=== PATIENT | female | born 1950 | race Hispanic/Latino ===

== ENCOUNTER 2019-04-03 09:07 | Emergency (ER) | payer MEDICARE ==
--- OUTSIDE RECORDS SUMMARY | 2019-04-03 09:09 | XMS REPORT | Clinical Summary ---
:1950 Author Organization [facility] Address [address] [place] [id number] Care Team Providers Name Role Phone Corona Barry MD Primary Care Provider Allergies No Known Allergies Medications Medication Sig Dispensed Refills Start Date End Date Status ezetimibe (ZETIA) 10 mg TK 1 T PO QD 5 08/09/2018 Active tablet levothyroxine TK 1 T PO QD 1 07/10/2018 Active (SYNTHROID, LEVOXYL) 50 mcg tablet fluticasone (FLONASE) 50 SHAKE LQ AND U 1 5 06/13/2018 Active mcg/actuation nasal SPR IEN QD spray Active Problems Problem Noted Date Family history of premature CAD 08/31/2018 Hyperlipidemia 08/31/2018 Encounters Date Type Specialty Care Team Description 09/16/2018 Office Visit Cardiology Adrogue, Hyperlipidemia, unspecified hyperlipidemia type (Primary Dx); MD Francy Family history of premature CAD 08/31/2018 Office Visit Cardiology Adrogue, Hx of congestive heart disease (Primary Dx); MD Francy Dizziness; Family history of premature CAD; Hyperlipidemia, unspecified hyperlipidemia type 08/08/2018 Transcribe Orders Procedural Adrogue, Family history of heart Cardiology MD Francy disease (Primary Dx) after 04/02/2018 Family History Medical History Relation Name Comments Heart attack Brother Heart attack Brother Stroke Brother Heart attack Father Heart attack Mother Heart attack Other Nephew Stroke Sister Stroke Sister Relation Name Status Comments Brother Alive Brother Alive Brother Alive Father Alive Mother Other Nephew age 40, of [place] Sister Alive Sister Alive Social History Tobacco Use Types Packs/Day Years Used Date Never Smoker Smokeless Tobacco: Never Used Alcohol Use Drinks/Week oz/Week Comments No Alcohol Habits Answer Date Recorded How often do you have a drink containing alcohol? Never 08/31/2018 How many drinks containing alcohol do you have on a typical Not asked day when you are drinking? How often do you have six or more drinks on one occasion? Not asked Sex Assigned at Date Recorded Not on file Job Start Date Occupation Industry Not on file Not on file Not on file Travel History Travel Start Travel End No recent travel history available. 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 ECHOCARDIOGRAM 2D Routine 08/31/2018 12:23 Family history of Results for this COMPLETE W MMODE PM CHIP MIXING MACHINE OPERATOR heart disease procedure are in SPECTRAL COLOR DOPPLER the results (15793) section. CV TREADMILL STRESS Routine 08/31/2018 10:53 Family history of TEST AM CHIP MIXING MACHINE OPERATOR heart disease ECG 12-LEAD Routine 08/31/2018 10:08 Hx of congestive Results for this AM CHIP MIXING MACHINE OPERATOR heart disease procedure are in the results section. after 04/02/2018 Results Us carotid duplex (09/16/2018 11:14 AM CHIP MIXING MACHINE OPERATOR) BSA Espinoza 0.00 m2 HM [facility] L CCA Prox 18.13 cm/s cm/s HM [facility] L CCA Prox 69.48 cm/s cm/s HM [facility] Lt CCA Prox RI 73.91 HM [facility] L ICA Prox 16.04 cm/s cm/s HM [facility] L ICA Prox 62.46 cm/s cm/s HM [facility] R ICA Prox 15.78 cm/s cm/s HM [facility] R ICA Prox 56.53 cm/s cm/s HM [facility] L ICA/CCA Ratio 1.19 cm/s HM [facility] R ICA/CCA Ratio 1.13 cm/s HM [facility] Lt CCA Prox SD 383.33 HM [facility] L CCA Max 69.48 cm/s cm/s HM [facility] R CCA Max 77.85 cm/s cm/s HM [facility] Lt ICA Prox RI 74.31 cm/s HM [facility] Lt ICA Prox SD 389.29 HM [facility] L ICA Max 82.83 cm/s cm/s HM [facility] Rt ICA Prox RI 72.09 cm/s [facility] Rt ICA Prox SD 358.33 cm/s HM [facility] R ICA Max 88.13 cm/s cm/s HM [facility] R CCA Prox 16.34 cm/s cm/s HM [facility] R CCA Prox 77.85 cm/s cm/s HM [facility] Rt CCA Prox RI 79.01 HM [facility] Rt CCA Prox SD 476.47 HM [facility] Lt CCA Dist SD Ratio 380.65 HM [facility] Lt ICA Dist SD Ratio 277.27 HM [facility] Rt CCA Dist SD Ratio 412.00 HM [facility] RT ICA Dist SD Ratio 343.24 cm/s HM [facility] Rt ICA Mid SD 329.73 cm/s HM [facility] R CCA Dist 14.32 cm/s cm/s HM [facility] R CCA Dist 59.02 cm/s cm/s HM [facility] RT CCA DIST RI 75.73 cm/s HM [facility] RT CCA PROX SD RATIO 476.47 cm/s HM [facility] L ICA Dist 29.87 cm/s cm/s HM [facility] L ICA DIST 82.83 cm/s cm/s HM [facility] LT IC MID EDV 21.94 cm/s HM [facility] Lt ICA MID PSV 69.70 cm/s HM [facility] R ICA Dist 25.68 cm/s cm/s HM [facility] R ICA Mid 22.95 cm/s cm/s HM [facility] Rt ICA MID PSV 75.66 cm/s HM [facility] Lt IC/CC 119.20 cm/s HM SYN[facility] L CCA Dist 16.19 cm/s cm/s HM [facility] L CCA Dist 61.62 cm/s cm/s HM [facility] Lt CCA Distal RI 73.73 HM [facility] Lt ECA PSV 52.31 cm/s HM [facility] R ECA Prox 53.62 cm/s cm/s HM [facility] Lt ICA Distal RI 63.93 HM [facility] L ICA Mid 21.94 cm/s cm/s HM [facility] L ICA Mid 69.70 cm/s cm/s HM [facility] Lt ICA Mid RI 68.52 HM [facility] Lt ICA Mid SD Ratio 317.65 HM [facility] Rt ICA Distal EDV 25.68 cm/s HM [facility] R ICA Dist 88.13 cm/s cm/s HM [facility] Rt ICA Distal RI 70.87 HM [facility] R ICA Mid 75.66 cm/s cm/s HM [facility] Rt ICA Mid RI 69.67 HM [facility] L Sub Art 154.71 cm/s cm/s HM [facility] R Sub Art 110.23 cm/s cm/s HM [facility] L Vert Art 75.59 cm/s cm/s HM [facility] R Vert Art 62.34 cm/s cm/s HM [facility] Rt Vertebral Artery RI 62.34 [facility] Specimen Narrative Performed At No evidence of hemodynamically significant atherosclerosis involving the HM [facility] common, internal and external carotid arteries. Bilateral antegrade vertebral artery flow. No evidence of hemodynamically significant atherosclerosis involving the subclavian arteries. Performing Organization Address City/State/Zipcode Phone Number [facility] [address] [place] [address] Echocardiogram complete w contrast and 3D if needed (08/31/2018 12:23 PM CHIP MIXING MACHINE OPERATOR) AoV Area, Vmax 2.03 cm2 [facility] AoV Area, VTI 1.85 cm2 HM [facility] AoV Mean PG 3.80 mmHg HM [facility] AoV Peak PG 7.39 mmHg HM [facility] AoV Vmax 1.36 m/s HM [facility] AoV VTI 0.31 m [facility] BSA Espinoza 1.44 m2 [facility] BSA 1.46 m2 [facility] IVS,d 0.75 cm [facility] IVS/LVPW,2D 1.03 [facility] LV,d 4.83 cm HM [facility] LV EF,2D 68.68 % [facility] LV,s 3.28 cm [facility] LVOT area 2.86 cm2 HM [facility] LVOT Diam,S 1.91 cm HM [facility] LVOT Vmax 0.96 m/s HM [facility] LVOT VTI 0.20 m HM [facility] LVPWD,d 0.73 cm HM [facility] PV Mean Grad 1.50 mmHg HM [facility] PV Pk Grad 3.64 mmHg HM [facility] PV VMAX 0.95 m/s HM [facility] PV VTI 0.21 m [facility] RVSP (TR) 23.76 mmHg HM [facility] TR Vpeak 2.28 mm/s HM [facility] MV E A ratio 0.83 [facility] RA pressure 3.00 mmHg HM [facility] TR pk grad 20.76 mmHg HM [facility] AoV area i VTI BSA Carl 1.27 cm2/m2 [facility] PV Vmn 0.58 [facility] BMI 18.25 kg/m2 HM [facility] E wave decelartion time 296.00 msec HM [facility] MV Peak A Buck 0.90 m/s HM [facility] MV valve area p 1/2 method 2.56 cm2 HM [facility] MV Peak E Buck 0.75 m/s HM [facility] MV stenosis pressure 1/2 time 85.84 ms HM [facility] AV LVOT peak gradient 3.69 mmHg HM [facility] RVSP 23.76 mmHg [facility] Ao Root,s,2D 2.59 cm [facility] LV CO 4.40 l/min [facility] LV CI 3.01 l/min/m2 [facility] LV SYS VOL 43.49 ml [facility] LV REYES VOL 109.09 ml HM [facility] LV SI Teich 2D 44.98 ml/m2 HM [facility] LV SV Teich 2D 65.61 ml HM [facility] LV Vol s Teich PSAX 43.49 ml [facility] LVOT CI 2.45 l/min/m2 [facility] LVOT CO 3.58 l/min HM [facility] LVOT SI 39.58 ml/m2 [facility] BSA Haycock 1.43 m2 [facility] AoV Vmn 0.92 [facility] LV FS Teich 2D 32.09 [facility] MV AE ratio 1.20 [facility] LV FS Cube 2D 32.09 [facility] LVOT Vmn 0.55 [facility] PA Reyes Press 4.82 [facility] Pt Size 160.02 [facility] Pt Wt 46.72 [facility] TN End Reyes Grad 1.82 HM [facility] TN End Diat Buck 0.68 HM [facility] Aov area Vmn 1.72 cm2 [facility] LVOT mean grad 1.40 mmHg HM [facility] AoV area I VMN bsa 1.18 cm2/m2 [facility] LV SI Cube 2D 53.06 ml/m2 [facility] LV SV Cube 2D 77.39 ml HM [facility] LV vol d cube 2D 112.68 ml [facility] LV vol s cube 2D 35.29 ml [facility] Velocity Ratio (V1/V2) 0.71 m/s HM [facility] EF 60.13 % [facility] E/A ratio 0.83 [facility] LV Mass 116.00 (g) HM [facility] LA volume 30.00 cm3 [facility] TDI 8.3 [facility] LA Volume Index 20.55 mL/m2 HM [facility] Left Atrium Dimension Anterior 3.00 cm HM [facility] LA Area d A4C 23 cm2 [facility] Mitral Valve E/E' 9.0 [facility] LV MN Mmode BSA 80.00 HM [facility] E/E' ratio 0.09 [facility] Specimen Narrative Performed At The left ventricular chamber size is normal. Left ventricular systolic [facility] function is normal. Left Ventricular ejection fraction is 60 - 65%. Normal left ventricular wall thickness and regional wall motion. Spectral Doppler shows normal pattern of LV diastolic filling. Normal LV filling pressure. Mild mitral valve regurgitation. RVSP is 24 mm Hg with estimated RAP of 10 mm Hg. Performing Organization Address [facility] Phone Number [facility] [address] [place] [address] ECG 12 lead (08/31/2018 10:08 AM CHIP MIXING MACHINE OPERATOR) Ventricular rate 66 [facility] Atrial rate 66 [facility] TN interval 142 [facility] QRSD interval 78 [facility] QT interval 384 [facility] QTC interval 402 [facility] P axis 1 72 [facility] QRS axis 1 80 [facility] T wave axis 68 [facility] EKG impression Normal sinus rhythm [facility] with sinus arrhythmia-Normal ECG-No previous ECGs available-Electronicall y Signed By Francy Ascencio MD ([id number]) on 09/01/2018 12:08:51 PM Specimen Narrative Performed At Performing Organization Address [facility] Phone Number [facility] [address] [place] [address] after 04/02/2018 Advance Directives For more information, please contact: [phone] Type Date Recorded Patient Foreign Exchange Position Clerk Explanation Advance Directives, Living Will and Medical Power of Cath Lab Technologist
[2019-04-03] MEDS ORDERED: ASPIRIN 81 MG CHEWABLE TABLET ONE (09:30)
[2019-04-03] MEDS ORDERED: NA CHLORIDE 0.9% 1,000 ML ONE (09:31)
[2019-04-03] MEDS ORDERED: FOLIC ACID 5 MG/ML VIAL ONE (09:32)
[2019-04-03 09:33] LABS: Absolute Lymphocytes (CBC) 1.9 K/uL (0.7-4.9); Basophils % 0.7 % (0-1.3); Lymphocytes % 28.1 % (15.3-44.8); MPV 9.7 fL (7.6-11.3); RBC Red Blood Cell Count 4.53 M/uL (3.86-4.86)
[2019-04-03 09:37] LABS: Protime INR 0.97
--- NOTE | 2019-04-03 09:43 | RAD REPORT ---
EXAM DESCRIPTION: CT - Ct Stroke Brain Wo Cont - 04/03/2019 9:19 am CLINICAL HISTORY: Code stroke, right-sided facial tingling, right arm tingling COMPARISON: None. TECHNIQUE: Axial 5 millimeter thick images of the head were obtained without IV contrast. All CT scans are performed using dose optimization technique as appropriate and may include automated exposure control or mA/KV adjustment according to patient size. FINDINGS: No intracranial hemorrhage, mass, or cerebral edema. No acute cortical based infarction is identified. There is decreased attenuation 12 mm in size in the anterior limb left internal capsule when compared to the right side. This extends into the lentiform nucleus. No cortical edema or sulcal effacement. Minimal focus of decreased attenuation is present in the left occipital lobe suspected t o be volume averaging of the occipital horn left lateral ventricle. No measurable atrophy. No signifi cant chronic ischemic change. No extra-axial fluid collections. Mack matter-white matter differentia tion is preserved. No globe or orbital content abnormality seen. Visualized portions of the mastoid air cells, paranasal sinuses, and orbits are unremarkable. Findings telephoned to Sandy in the emergency department 9:22 p.m. IMPRESSION: No intracranial hemorrhage. 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
[2019-04-03 09:45] LABS: Potassium 4.4 mmol/L (3.5-5.1)
--- NOTE | 2019-04-03 09:50 | RAD REPORT ---
EXAM DESCRIPTION: RAD - Chest Single View - 04/03/2019 9:40 am CLINICAL HISTORY: Stroke protocol chest film COMPARISON: July 2012 TECHNIQUE: AP portable chest image was obtained 0928 hours . FINDINGS: Lungs are clear. Heart and vasculature are normal. No measurable pleural effusion and no p neumothorax. No acute bony abnormality seen. No acute aortic findings suspected. IMPRESSION: No acute cardiopulmonary process. No significant interval change.
--- NOTE | 2019-04-03 10:08 | ER ---
Nurse's Notes [facility] Name: Micaela Wheatley Age: 69 yrs Sex: Female : 1950 Arrival Date: 04/03/2019 Time: 09:[address] Private MD: Diagnosis: Cerebral infarction Presentation: 04/03 09:28 Presenting complaint: Patient states: Dizziness that began yesterday evening and ss numbness to R side of face and R upper arm that began at 0700 this AM. Denies pain at this time. Transition of care: patient was not received from another setting of care. Onset of symptoms was April 03, 2019 at 07:00. Risk Assessment: Do you want to hurt yourself or someone else? Patient reports no desire to harm self or others. Initial Sepsis Screen: Does the patient meet any 2 criteria? No. Patient's initial sepsis screen is negative. Does the patient have a suspected source of infection? No. Patient's initial sepsis screen is negative. Care prior to arrival: None. 09:28 Method Of Arrival: Ambulatory ss 09:28 Acuity: CLYDE 2 ss 09:30 No acute neurological deficit is noted. The patients blood glucose was checked before iw arriving to the hospital and was found to be normal. Triage Assessment: 09:15 The onset of the patients symptoms was April 03, 2019 at 07:00. iw 09:18 Neuro: Reports numbness. iw Stroke Activation: Symptom onset < 3 hours Physician: Stroke Attending; Name: ; Notified At: ; Arrived At: Physician: Chief Stroke Resident; Name: ; Notified At: ; Arrived At: Physician: Stroke Resident; Name: ; Notified At: ; Arrived At: Physician: ED Attending; Name: Dr. Hernández; Notified At: 09:14; Arrived At: 09:14 Physician: ED Resident; Name: ; Notified At: ; Arrived At: Historical: - Allergies: 09:17 No Known Allergies; iw - Home Meds: 09:17 levothyroxine 50 mcg tab 1 tab once daily [Active]; amoxicillin 500 mg Oral cap daily iw [Active]; ezetimibe oral 10 mg oral once daily [Active]; pantoprazole 40 mg oral TbEC 1 tab once daily [Active]; - PMHx: 09:17 Hyperlipidemia; Hypothyroidism; iw - PSHx: 09:17 Hysterectomy; iw - Immunization history:: Adult Immunizations up to date. - Social history:: Smoking status: Patient/guardian denies using tobacco. - Ebola Screening: : Patient negative for fever greater than or equal to 101.5 degrees Fahrenheit, and additional compatible Ebola Virus Disease symptoms Patient denies exposure to infectious person Patient denies travel to an Ebola-affected area in the 21 days before illness onset No symptoms or risks identified at this time. - Family history:: not pertinent. Screenin:25 Abuse screen: Denies threats or abuse. Denies injuries from another. Nutritional iw screening: No deficits noted. Tuberculosis screening: No symptoms or risk factors identified. Fall Risk IV access (20 points). Assessment: 09:14 Reassessment: Code Stroke called. ss 09:14 General: Appears in no apparent distress. comfortable, Behavior is calm, cooperative. ss Pain: Denies pain. Neuro: Level of Consciousness is awake, alert, obeys commands, Oriented to person, place, time, situation, Garment Steamer are equal bilaterally Moves all extremities. Full function Gait is steady, Speech is normal, Facial symmetry appears normal, Pupils are PERRLA, Tingling in R side of face and R upper arm Denies. Cardiovascular: Capillary refill < 3 seconds is brisk in bilateral fingers Patient's skin is warm and dry. Respiratory: Airway is patent Respiratory effort is even, unlabored, Respiratory pattern is regular, symmetrical, Breath sounds are clear bilaterally. Denies cough, shortness of breath pain with respiration, pain with cough, pain with movement. GI: Abdomen is non-distended, Patient currently denies diarrhea, nausea, vomiting. : No signs and/or symptoms were reported regarding the genitourinary system. EENT: Nares are clear Oral mucosa is moist. Derm: Skin is intact, is healthy with good turgor, Skin is dry, Skin is pink, warm \T\ dry. normal. Musculoskeletal: Range of motion: intact in all extremities. 09:19 Reassessment: pt transported back to ER room 3. iw 09:20 Reassessment: Dr. Hernández at bedside to assess pt. iw 09:22 Reassessment: Patient reports that she feels 90% better at this time. Denies tingling/ ss numbness in her arm at this time. 09:30 Patient has been NPO before screening. The patient is alert, and able to follow iw commands. The patient does not exhibit slurred or garbled speech. The patient is not exhibiting difficulty speaking. The patient is exhibiting difficulty understanding words. The patient is able to swallow own secretions with no drooling or need for suction. Patient tolerated one teaspoon of water. No drooling, immediate coughing, gurgling, or clearing of the throat was noted. The patient tolerated 90mL of water. No drooling, immediate coughing, gurgling, or clearing of the throat was noted. The patient passed the bedside swallow screening. Oral medications may be given as ordered. Contact Physician for further diet orders. Provider notified of bedside swallow screening results: Adrián Hernández MD. 09:30 VAN Scoring: Arm Drift: Patients demonstrates NO arm weakness. Patient is VAN Negative. iw T-PA (Activase) Screening: Contraindications: Rapidly improving condition or minor deficit: Yes. 10:00 Reassessment: Patient appears in no apparent distress at this time. Patient and/or iw family updated on plan of care and expected duration. Pain level reassessed. Patient is alert, oriented x 3, equal unlabored respirations, skin warm/dry/pink. pt states she feels back to her normal self, no longer has numbness to face or arm Patient denies pain at this time. Patient states feeling better. Patient states symptoms have improved. 10:30 Reassessment: assisted patient to restroom VIA wheelchair. Patient has no complaints at this time other than being cold. Additional warm blanket given for comfort, patient is grateful and back in room 3 on monitors. Vital Signs: 09:25 BP 137 / 65; Pulse 87; Resp 16; Temp 97.8; Pulse Ox 100% on R/A; Weight 44.45 kg; iw Height 5 ft. 4 in. (162.56 cm); Pain 0/10; 10:20 BP 134 / 87; Pulse 74; Resp 16; Pulse Ox 100% on R/A; Pain 0/10; iw 10:57 BP 126 / 75; Pulse 84; Resp 16; Pulse Ox 98% on R/A; Pain 0/10; iw 09:25 Body Mass Index 16.82 (44.45 kg, 162.56 cm) NIH Stroke Scale Scores: 09:14 NIHSS Score: 1 ss 09:38 NIHSS Score: 0 misti 10:49 NIHSS Score: 0 ED Course: 09:09 Patient arrived in ED. as 09:14 Arm band placed on. iw 09:16 Adrián Hernández MD is Attending Physician. misti 09:19 Roshni Art, RN is Primary Nurse. iw 09:20 Patient has correct armband on for positive identification. Placed in gown. Bed in low ss position. Call light in reach. Side rails up X 1. hall monitor on. Pulse ox on. NIBP on. Warm blanket given. 09:21 CT Stroke Brain w/o Contrast In Process Unspecified. EDMS 09:23 Initial lab(s) drawn, by lab animal technologist, sent to lab. iw 09:30 Triage completed. ss 09:37 X-ray completed. Portable x-ray completed in exam room. Patient tolerated procedure sw well. 09:41 Stroke CXR 1 View In Process Unspecified. EDMS 09:45 EKG done, by ED staff, reviewed by Adrián Hernández MD. em1 09:58 CT Head Angio In Process Unspecified. EDMS 10:58 No provider procedures requiring assistance completed. Patient transferred, IV remains iw in place. Administered Medications: 09:38 Drug: NS 0.9% 1000 ml Route: IV; Rate: 1 bolus; Site: right forearm; iw 10:49 Follow up: IV Status: Completed infusion hj 09:38 Drug: foLIC Acid 1 mg Route: IVPB; Site: right forearm; iw 10:49 Follow up: IV Status: Completed infusion hj 09:38 Drug: Aspirin Chewable Tablet 324 mg Route: PO; iw 10:48 Follow up: Response: No adverse reaction hj 10:46 Drug: PlaVIX 75 mg Route: PO; hj 10:48 Follow up: Response: No adverse reaction Point of Care Testing: Blood Glucose: 09:27 Blood Glucose: 106 mg/dL; iw Ranges: Outcome: 09:44 ER care complete, transfer ordered by . misti 10:59 Transferred by ground EMS Nereyda ROBLES Note Taker. to [facility], [facility], Transfer form completed. X-rays sent w/ patient. 10:59 Condition: good 10:59 Discharge instructions given to patient, family, Instructed on the need for transfer, Demonstrated understanding of instructions. 11:00 Patient left the ED. iw NIH Stroke Scale - NIH Stroke Score Date: 04/03/2019 Time: 09:14 Total Score = 1 1a. Level of Consciousness (LOC) - 0(Alert) 1b. Level of Consciousness (LOC) (Year \T\ Age) - 0(Both) 1c. LOC Commands (Open \T\ Closes Eyes/Clinical Education Manager) - 0(Both) 2. Best Gaze (Lateral Gaze Paresis) - 0(Normal) 3. Visual Field Loss - 0(No visual loss) 4. Facial Palsy - 0(Normal) 5a. Left Arm: Motor (10-second hold) - 0(No drift) 5b. Right Arm: Motor (10-second hold) - 0(No drift) 6a. Left Leg: Motor (5-second hold - always test supine) - 0(No drift) 6b. Right Leg: Motor (5-second hold - always test supine) - 0(No drift) 7. Limb Ataxia (finger/nose \T\ heel/tamayo - test with eyes open) - 0(Absent) 8. Sensory Loss (pinprick arms/legs/face) - 1(Mild to moderate loss) 9. Best Language: Aphasia (description/naming/reading) - 0(No aphasia) 10. Dysarthria (speech clarity - read or repeat words) - 0(Normal) 11. Extinction and Inattention (visual/tactile/auditory/spatial/personal) - 0(No abnormality) Initials: NIH Stroke Scale - NIH Stroke Score Date: 04/03/2019 Time: 09:38 Total Score = 0 1a. Level of Consciousness (LOC) - 0(Alert) 1b. Level of Consciousness (LOC) (Year \T\ Age) - 0(Both) 1c. LOC Commands (Open \T\ Closes Eyes/Clinical Education Manager) - 0(Both) 2. Best Gaze (Lateral Gaze Paresis) - 0(Normal) 3. Visual Field Loss - 0(No visual loss) 4. Facial Palsy - 0(Normal) 5a. Left Arm: Motor (10-second hold) - 0(No drift) 5b. Right Arm: Motor (10-second hold) - 0(No drift) 6a. Left Leg: Motor (5-second hold - always test supine) - 0(No drift) 6b. Right Leg: Motor (5-second hold - always test supine) - 0(No drift) 7. Limb Ataxia (finger/nose \T\ heel/tamayo - test with eyes open) - 0(Absent) 8. Sensory Loss (pinprick arms/legs/face) - 0(Normal) 9. Best Language: Aphasia (description/naming/reading) - 0(No aphasia) 10. Dysarthria (speech clarity - read or repeat words) - 0(Normal) 11. Extinction and Inattention (visual/tactile/auditory/spatial/personal) - 0(No abnormality) Initials: [facility] NIH Stroke Scale - NIH Stroke Score Date: 04/03/2019 Time: 10:49 Total Score = 0 1a. Level of Consciousness (LOC) - 0(Alert) 1b. Level of Consciousness (LOC) (Year \T\ Age) - 0(Both) 1c. LOC Commands (Open \T\ Closes Eyes/Clinical Education Manager) - 0(Both) 2. Best Gaze (Lateral Gaze Paresis) - 0(Normal) 3. Visual Field Loss - 0(No visual loss) 4. Facial Palsy - 0(Normal) 5a. Left Arm: Motor (10-second hold) - 0(No drift) 5b. Right Arm: Motor (10-second hold) - 0(No drift) 6a. Left Leg: Motor (5-second hold - always test supine) - 0(No drift) 6b. Right Leg: Motor (5-second hold - always test supine) - 0(No drift) 7. Limb Ataxia (finger/nose \T\ heel/tamayo - test with eyes open) - 0(Absent) 8. Sensory Loss (pinprick arms/legs/face) - 0(Normal) 9. Best Language: Aphasia (description/naming/reading) - 0(No aphasia) 10. Dysarthria (speech clarity - read or repeat words) - 0(Normal) 11. Extinction and Inattention (visual/tactile/auditory/spatial/personal) - 0(No abnormality) Initials: iw Signatures: Dispatcher [employer] EDAdrián Manuel MD MD cha Martinez, Roshni Coughlin, RN LUBNA Chino, Daniel em1 Franci Diaz RN RN ss Warren, Shannon sw Joaquin, Henry, RN RN Corrections: (The following items were deleted from the chart) 13:14 09:30 Stroke Activation: Symptom onset < 3 hours; ED Attending Dr. Hernández iw notified at :, arrived at : iw
--- NOTE | 2019-04-03 10:08 | EDPHYS ---
Physician Documentation [facility] Name: Micaela Wheatley Age: 69 yrs Sex: Female : 1950 Arrival Date: 04/03/2019 Time: 09:[address] Private MD: LILO Physician Adrián Hernández HPI: 04/03 09:38 This 69 yrs old Female presents to ER via Ambulatory with complaints of misti Numbness - r side. 09:38 The patient's problem is reported as paresthesias, in right lower extremity, in right misti side of face. Onset: The symptoms/episode began/occurred this morning. Duration: The episode is continuous. Context: the episode(s) was witnessed, by family, , symptoms became apparent at 07:30. occurred at home, occurred while the patient was walking. The symptoms are alleviated by nothing. The symptoms are aggravated by nothing. Associated signs and symptoms: The patient has no apparent associated signs or symptoms. Severity of symptoms: At their worst the symptoms were mild in the emergency department the symptoms have improved markedly, 90 percent better. Patient's baseline: Neuro: alert and fully oriented. Historical: - Allergies: 09:17 No Known Allergies; iw - Home Meds: 09:17 levothyroxine 50 mcg tab 1 tab once daily [Active]; amoxicillin 500 mg Oral cap daily iw [Active]; ezetimibe oral 10 mg oral once daily [Active]; pantoprazole 40 mg oral TbEC 1 tab once daily [Active]; - PMHx: 09:17 Hyperlipidemia; Hypothyroidism; iw - PSHx: 09:17 Hysterectomy; iw - Immunization history:: Adult Immunizations up to date. - Social history:: Smoking status: Patient/guardian denies using tobacco. - Ebola Screening: : Patient negative for fever greater than or equal to 101.5 degrees Fahrenheit, and additional compatible Ebola Virus Disease symptoms Patient denies exposure to infectious person Patient denies travel to an Ebola-affected area in the 21 days before illness onset No symptoms or risks identified at this time. - Family history:: not pertinent. ROS: 09:38 Constitutional: Negative for fever, chills, and weight loss, Eyes: Negative for injury, misti pain, redness, and discharge, ENT: Negative for injury, pain, and discharge, Neck: Negative for injury, pain, and swelling, Cardiovascular: Negative for chest pain, palpitations, and edema, Respiratory: Negative for shortness of breath, cough, wheezing, and pleuritic chest pain, Abdomen/GI: Negative for abdominal pain, nausea, vomiting, diarrhea, and constipation, Back: Negative for injury and pain, : Negative for injury, bleeding, discharge, and swelling, MS/Extremity: Negative for injury and deformity, Neuro: Negative for headache, weakness, numbness, tingling, and seizure, Psych: Negative for depression, anxiety, suicide ideation, homicidal ideation, and hallucinations, Allergy/Immunology: Negative for hives, rash, and allergies, Endocrine: Negative for neck swelling, polydipsia, polyuria, polyphagia, and marked weight changes, Hematologic/Lymphatic: Negative for swollen nodes, abnormal bleeding, and unusual bruising. 09:38 Skin: 09:38 Neuro: Positive for tingling, of the face and right arm. Exam: 09:38 Constitutional: This is a well developed, well nourished patient who is awake, alert, misti and in no acute distress. Head/Face: Normocephalic, atraumatic. Eyes: Pupils equal round and reactive to light, extra-ocular motions intact. Lids and lashes normal. Conjunctiva and sclera are non-icteric and not injected. Cornea within normal limits. Periorbital areas with no swelling, redness, or edema. ENT: Nares patent. No nasal discharge, no septal abnormalities noted. Tympanic membranes are normal and external auditory canals are clear. Oropharynx with no redness, swelling, or masses, exudates, or evidence of obstruction, uvula midline. Mucous membranes moist. Neck: Trachea midline, no thyromegaly or masses palpated, and no cervical lymphadenopathy. Supple, full range of motion without nuchal rigidity, or vertebral point tenderness. No Meningismus. Chest/axilla: Normal chest wall appearance and motion. Nontender with no deformity. No lesions are appreciated. Cardiovascular: Regular rate and rhythm with a normal S1 and S2. No gallops, murmurs, or rubs. Normal PMI, no JVD. No pulse deficits. Respiratory: Lungs have equal breath sounds bilaterally, clear to auscultation and percussion. No rales, rhonchi or wheezes noted. No increased work of breathing, no retractions or nasal flaring. Abdomen/GI: Soft, non-tender, with normal bowel sounds. No distension or tympany. No guarding or rebound. No evidence of tenderness throughout. Back: No spinal tenderness. No costovertebral tenderness. Full range of motion. Female : Normal external genitalia. Skin: Warm, dry with normal turgor. Normal color with no rashes, no lesions, and no evidence of cellulitis. MS/ Extremity: Pulses equal, no cyanosis. Neurovascular intact. Full, normal range of motion. Neuro: Awake and alert, GCS 15, oriented to person, place, time, and situation. Cranial nerves II-XII grossly intact. Motor strength 5/5 in all extremities. Sensory grossly intact. Cerebellar exam normal. Normal gait. Psych: Awake, alert, with orientation to person, place and time. Behavior, mood, and affect are within normal limits. 09:44 Radiologist reports: see report misti Vital Signs: 09:25 BP 137 / 65; Pulse 87; Resp 16; Temp 97.8; Pulse Ox 100% on R/A; Weight 44.45 kg; iw Height 5 ft. 4 in. (162.56 cm); Pain 0/10; 10:20 BP 134 / 87; Pulse 74; Resp 16; Pulse Ox 100% on R/A; Pain 0/10; iw 10:57 BP 126 / 75; Pulse 84; Resp 16; Pulse Ox 98% on R/A; Pain 0/10; iw 09:25 Body Mass Index 16.82 (44.45 kg, 162.56 cm) NIH Stroke Scale Scores: 09:14 NIHSS Score: 1 ss 09:38 NIHSS Score: 0 misti 10:49 NIHSS Score: 0 MDM: 09:16 Patient medically screened. [facility] 09:44 Data reviewed: vital signs, nurses notes, lab test result(s), EKG, radiologic studies, [facility] CT scan, plain films. 09:52 ED course: not a tpa candidate, 95 percent improvement, nih zero. [facility] 04/03 09:14 Order name: Basic Metabolic Panel; Complete Time: 09:51 ms 04/03 09:14 Order name: CBC with Diff; Complete Time: 09:46 ms 04/03 09:14 Order name: Protime (+inr); Complete Time: 09:46 ms 04/03 09:14 Order name: Ptt, Activated; Complete Time: 09:46 ms 04/03 10:05 Order name: Urine Dipstick--Ancillary (enter results); Complete Time: 10:25 ms 04/03 09:14 Order name: CT Stroke Brain w/o Contrast; Complete Time: 10:25 ms 04/03 09:14 Order name: Stroke CXR 1 View; Complete Time: 10:25 ms 04/03 09:14 Order name: EKG; Complete Time: 09:17 ms 04/03 09:28 Order name: CT Head Angio misti 04/03 09:14 Order name: Accucheck; Complete Time: 09:46 ms 04/03 09:14 Order name: Cardiac monitoring; Complete Time: 09:23 ms 04/03 09:14 Order name: EKG - Nurse/Tech; Complete Time: 09:45 ms 04/03 09:14 Order name: IV Saline Lock; Complete Time: 09:46 ms 04/03 09:14 Order name: Labs collected and sent; Complete Time: 09:46 ms 04/03 09:14 Order name: NPO; Complete Time: 09:23 ms 04/03 09:15 Order name: O2 Per Protocol; Complete Time: 09:23 ms 04/03 09:15 Order name: O2 Sat Monitoring; Complete Time: 09:23 ms 04/03 09:15 Order name: Stroke Swallow Screen; Complete Time: 09:46 ms 04/03 09:28 Order name: Urine Dipstick-Ancillary (obtain specimen); Complete Time: 09:46 [facility] Administered Medications: 09:38 Drug: NS 0.9% 1000 ml Route: IV; Rate: 1 bolus; Site: right forearm; iw 10:49 Follow up: IV Status: Completed infusion hj 09:38 Drug: foLIC Acid 1 mg Route: IVPB; Site: right forearm; iw 10:49 Follow up: IV Status: Completed infusion hj 09:38 Drug: Aspirin Chewable Tablet 324 mg Route: PO; iw 10:48 Follow up: Response: No adverse reaction hj 10:46 Drug: PlaVIX 75 mg Route: PO; hj 10:48 Follow up: Response: No adverse reaction Point of Care Testing: Blood Glucose: 09:27 Blood Glucose: 106 mg/dL; iw Ranges: Critical Glucose Levels:Adult <50 mg/dl or >400 mg/dl <40 mg/dl or >180 mg/dl Disposition: 04/03/19 09:44 Transfer ordered to [facility]. Diagnosis is Cerebral infarction. - Reason for transfer: Higher level of care. - Accepting physician is to [facility]. - Condition is Fair. - Problem is new. - Symptoms have improved. NIH Stroke Scale - NIH Stroke Score Date: 04/03/2019 Time: 09:14 Total Score = 1 1a. Level of Consciousness (LOC) - 0(Alert) 1b. Level of Consciousness (LOC) (Year \T\ Age) - 0(Both) 1c. LOC Commands (Open \T\ Closes Eyes/Photographic Laboratory Technician) - 0(Both) 2. Best Gaze (Lateral Gaze Paresis) - 0(Normal) 3. Visual Field Loss - 0(No visual loss) 4. Facial Palsy - 0(Normal) 5a. Left Arm: Motor (10-second hold) - 0(No drift) 5b. Right Arm: Motor (10-second hold) - 0(No drift) 6a. Left Leg: Motor (5-second hold - always test supine) - 0(No drift) 6b. Right Leg: Motor (5-second hold - always test supine) - 0(No drift) 7. Limb Ataxia (finger/nose \T\ heel/tamayo - test with eyes open) - 0(Absent) 8. Sensory Loss (pinprick arms/legs/face) - 1(Mild to moderate loss) 9. Best Language: Aphasia (description/naming/reading) - 0(No aphasia) 10. Dysarthria (speech clarity - read or repeat words) - 0(Normal) 11. Extinction and Inattention (visual/tactile/auditory/spatial/personal) - 0(No abnormality) Initials: NIH Stroke Scale - NIH Stroke Score Date: 04/03/2019 Time: 09:38 Total Score = 0 1a. Level of Consciousness (LOC) - 0(Alert) 1b. Level of Consciousness (LOC) (Year \T\ Age) - 0(Both) 1c. LOC Commands (Open \T\ Closes Eyes/Photographic Laboratory Technician) - 0(Both) 2. Best Gaze (Lateral Gaze Paresis) - 0(Normal) 3. Visual Field Loss - 0(No visual loss) 4. Facial Palsy - 0(Normal) 5a. Left Arm: Motor (10-second hold) - 0(No drift) 5b. Right Arm: Motor (10-second hold) - 0(No drift) 6a. Left Leg: Motor (5-second hold - always test supine) - 0(No drift) 6b. Right Leg: Motor (5-second hold - always test supine) - 0(No drift) 7. Limb Ataxia (finger/nose \T\ heel/tamayo - test with eyes open) - 0(Absent) 8. Sensory Loss (pinprick arms/legs/face) - 0(Normal) 9. Best Language: Aphasia (description/naming/reading) - 0(No aphasia) 10. Dysarthria (speech clarity - read or repeat words) - 0(Normal) 11. Extinction and Inattention (visual/tactile/auditory/spatial/personal) - 0(No abnormality) Initials: [facility] NIH Stroke Scale - NIH Stroke Score Date: 04/03/2019 Time: 10:49 Total Score = 0 1a. Level of Consciousness (LOC) - 0(Alert) 1b. Level of Consciousness (LOC) (Year \T\ Age) - 0(Both) 1c. LOC Commands (Open \T\ Closes Eyes/Photographic Laboratory Technician) - 0(Both) 2. Best Gaze (Lateral Gaze Paresis) - 0(Normal) 3. Visual Field Loss - 0(No visual loss) 4. Facial Palsy - 0(Normal) 5a. Left Arm: Motor (10-second hold) - 0(No drift) 5b. Right Arm: Motor (10-second hold) - 0(No drift) 6a. Left Leg: Motor (5-second hold - always test supine) - 0(No drift) 6b. Right Leg: Motor (5-second hold - always test supine) - 0(No drift) 7. Limb Ataxia (finger/nose \T\ heel/tamayo - test with eyes open) - 0(Absent) 8. Sensory Loss (pinprick arms/legs/face) - 0(Normal) 9. Best Language: Aphasia (description/naming/reading) - 0(No aphasia) 10. Dysarthria (speech clarity - read or repeat words) - 0(Normal) 11. Extinction and Inattention (visual/tactile/auditory/spatial/personal) - 0(No abnormality) Initials: iw Signatures: Dispatcher [employer] Adrián Hobbs MD MD cha Williams, Irene, RN RN iw Solis, Maria ms Smirch, Shelby, RN RN Stanley Edouard RN RN Corrections: (The following items were deleted from the chart) 11:00 09:44 04/03/2019 09:44 Transfer ordered to [facility]. iw Diagnosis is Cerebral infarction. Reason for transfer: Higher level of care. Accepting physician is to [facility]. Condition is Fair. Problem is new. Symptoms have improved. misti
[2019-04-03 10:12] LABS: Urine Blood TRACE (NEG); Urine Glucose NEGATIVE (NEG); Urine Protein NEGATIVE (NEG); Urine Specific Gravity 1.015 (1.005-1.030); Urine pH 7.5 (5.0-7.0)
--- NOTE | 2019-04-03 10:32 | RAD REPORT ---
EXAM DESCRIPTION: CT - Head angio - 04/03/2019 9:57 am CLINICAL HISTORY: DIZZINESSright-sided facial and arm tingling, abnormal CT study TECHNIQUE: During dynamic enhancement using nonionic IV contrast, axial 1 millimeter thick images of the head were obtained. Sagittal and axial reconstruction images were generated using MIP technique and reviewed. All CT scans are performed using dose optimization technique as appropriate and may include automated exposure control or mA/KV adjustment according to patient size. COMPARISON: CT head April 03 FINDINGS: No aneurysm or vascular malformation identified. Major venous sinuses are patent. No stenosis, named branch occlusion, vasculitis or other significant vascular finding identifiable. T he small perforating vessels that supplied the suspected area of infarction in the left internal caps ule [address] angio imaging due to very small size. IMPRESSION: Negative CT angio head examination. The perforating vessels that supply the area of suspected infarction left internal capsule are usuall y occult to CT angio due to small size.
[2019-04-03] MEDS ORDERED: CLOPIDOGREL 75 MG TABLET ONE (10:48)
--- NOTE | 2019-04-04 17:39 | EKG ---
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
== END 2019-04-03 11:00 | disposition short-term general hospital (02) ==
LOC: ER 09:07
DX: I63.9 Cerebral infarction, unspecified (principal); R29.701 NIHSS score 1; E78.5 Hyperlipidemia, unspecified; E03.9 Hypothyroidism, unspecified
CPT/HCPCS: 96365; 93005; 85025; 80048; 36415; 85610; 82962; 85730; 81003; 70496; 70450; 71045; 99285; Q9967; J7030